=== PATIENT | male | born 1930 | race Caucasian/White ===

== ENCOUNTER → 2018-02-23 | Outpatient (CLI) | payer OTHER ==
[~2018-02-23] MED LIST: AMLODIPINE BESY10 MG PO; ASPIRIN81 M2 PO; ATORVASTATIN CA80 MG PO; CENTRUM SILVER1 EAC3 PO; COZAAR100 MG PO; TRAMADOL HCL50 MG PO
== END | disposition home or self-care (01) ==
LOC: PICC 13:10
DX: M86.9 Osteomyelitis, unspecified (principal); Z91.09 Other allergy status, other than to drugs and biological substances
CPT/HCPCS: 76937; C1769